=== PATIENT | female | born 1940 | race Caucasian/White ===

== ENCOUNTER 2023-05-27 06:07 | Emergency (ER) | payer MEDICARE ==
[2023-05-27 06:30] LABS: #Basophils 0.1 10x3/uL (0.0-0.2); #Eosinphils 0.3 10x3/uL (0.0-0.5); #Monocytes 0.9 10x3/uL (0.0-1.1); #Neutrophils 6.2 10x3/uL (1.5-8.4); %Basophils 1.4 % (0.0-2.0); %Eosinophils 3.7 % (0.0-6.0); %Monocytes 9.5 % (0.0-10.0); %Neutrophils 67.1 % (40.0-75.0); Hemoglobin 13.2 g/dL (12.0-15.5); Mean Corpuscular HGB CONC 32.4 g/dL (32.0-36.0); Mean Corpuscular Hemoglobin 30.1 pg (27.0-33.0); Mean Corpuscular Volume 92.7 fl (81.6-98.3); Mean Platelet Volume 9.3 fl (7.4-10.4); Platelet Count 251 10x3/uL (150-450); Red Blood Cell (RBC) Count 4.39 10x6/uL (3.90-5.03); White Blood Cell (WBC) Count 9.2 10x3/uL (3.5-10.5)
[2023-05-27 06:45] LABS: ALT (SGPT) 23 U/L (8-55); AST (SGOT) 28 U/L (5-34); Albumin 3.8 g/dL (3.4-4.8); Alkaline Phosphatase 69 U/L (40-110); Anion Gap 12 mmol/L (10-20); BUN (Urea Nitrogen) 17 mg/dL (9.8-20.1); Bilirubin, Total 0.6 mg/dL (0.2-1.2); Calc. Creatinine Clearance 0 mL/min (70-130); Carbon Dioxide 23 mmol/L (23-31); Chloride 110 mmol/L (98-107); Estimated GFR 90; Globulin 1.6 g/dL (2.4-3.5); Glucose 93 mg/dL (83-110); Potassium 4.2 mmol/L (3.5-5.1); Protein, Total 5.4 g/dL (5.8-8.1); Sodium 141 mmol/L (136-145)
[2023-05-27] MEDS ORDERED: Lidocaine 1% (PF) 30 ML VIAL ONE (08:22)
[2023-05-27] MEDS ORDERED: Morphine 4 MG/ML VIAL ONE ×2 (08:22→11:32)
[2023-05-27] MEDS ORDERED: Ampicillin/Sulbactam 3 GM in Sodium Chloride 0.9% 100 ML IVPB SCH (09:00)
[2023-05-27] MEDS ORDERED: Boostrix 0.5 ML (Tdap) VIAL (>/=7 yrs of age) ONE (09:04)
[2023-05-27] MEDS ORDERED: Ondansetron PF 4 MG/2 ML Vial ONE ×2 (11:31→15:47)
== END 2023-05-27 17:13 | disposition short-term general hospital (02) ==
LOC: CSHERS 06:07
DX: S06.6X0A Traumatic subarachnoid hemorrhage without loss of consciousness, initial encounter (principal); S01.81XA Laceration without foreign body of other part of head, initial encounter; S01.01XA Laceration without foreign body of scalp, initial encounter; I48.91 Unspecified atrial fibrillation; W18.30XA Fall on same level, unspecified, initial encounter; Z23 Encounter for immunization; Z79.01 Long term (current) use of anticoagulants
CPT/HCPCS: 12011; 36415; 70450; 70486; 72125; 76377; 80053; 84484; 85025; 90471; 90715; 93005; 96365; 96375; 96376; J0295; J2001; J2270; J2405; J3490

== ENCOUNTER 2023-06-30 09:56 | Outpatient (CLI) | payer MEDICARE | END 2023-06-30 09:57 | disposition home or self-care (01) | LOC: CSHCT 09:56 | PROVIDERS: ATTEND Neurological Surgery | DX: I61.9 Nontraumatic intracerebral hemorrhage, unspecified (principal); I62.01 Nontraumatic acute subdural hemorrhage; R93.0 Abnormal findings on diagnostic imaging of skull and head, not elsewhere classified | CPT/HCPCS: 70450 ==

== ENCOUNTER 2023-08-01 12:43 | Outpatient (CLI) | payer MEDICARE | END 2023-08-01 12:44 | disposition home or self-care (01) | LOC: CSHCT 12:43 | PROVIDERS: ATTEND Neurological Surgery | DX: I61.9 Nontraumatic intracerebral hemorrhage, unspecified (principal); I62.00 Nontraumatic subdural hemorrhage, unspecified; Z98.2 Presence of cerebrospinal fluid drainage device | CPT/HCPCS: 70450 ==

== ENCOUNTER 2023-09-27 12:39 | Outpatient (CLI) | payer MEDICARE | END 2023-09-27 12:40 | disposition home or self-care (01) | LOC: CSHCT 12:39 | PROVIDERS: ATTEND Neurological Surgery | DX: I61.9 Nontraumatic intracerebral hemorrhage, unspecified (principal) | CPT/HCPCS: 70450 ==

== ENCOUNTER 2023-12-26 12:26 | Outpatient (CLI) | payer MEDICARE | END 2023-12-26 12:27 | disposition home or self-care (01) | LOC: CSHCT 12:26 | PROVIDERS: ATTEND Neurological Surgery | DX: I61.9 Nontraumatic intracerebral hemorrhage, unspecified (principal); I62.00 Nontraumatic subdural hemorrhage, unspecified | CPT/HCPCS: 70450 ==

== ENCOUNTER 2024-10-16 11:05 | Emergency (ER) | payer MEDICARE, OTHER ==
[2024-10-16] MEDS ORDERED: Lidocaine 1% w/Epinephrine 1:200K 30 ML VIAL ONE (11:44)
[2024-10-16] MEDS ORDERED: Boostrix 0.5 ML (Tdap) VIAL (>/=7 yrs of age) ONE (12:06)
== END 2024-10-16 12:25 | disposition home or self-care (01) ==
LOC: CSHERS 11:05
DX: S01.01XA Laceration without foreign body of scalp, initial encounter (principal); S09.90XA Unspecified injury of head, initial encounter; W19.XXXA Unspecified fall, initial encounter; Z23 Encounter for immunization
CPT/HCPCS: 12001; 70450; 90471; 90715

== ENCOUNTER 2024-10-21 07:18 | Emergency (ER) | payer MEDICARE, OTHER | END 2024-10-21 08:13 | disposition home or self-care (01) | LOC: CSHERS 07:18 | DX: S01.01XD Laceration without foreign body of scalp, subsequent encounter (principal); W10.1XXA Fall (on)(from) sidewalk curb, initial encounter ==